=== PATIENT | male | born 1970 | race Caucasian/White ===

== ENCOUNTER 2020-05-14 23:44 | Emergency (ER) | payer OTHER ==
[2020-05-15 00:28] LABS: HEMOGLOBIN 14.6 gm/dl (14.0-17.5); RED BLOOD COUNT 4.99 M/UL (4.20-5.50); WHITE BLOOD COUNT 3.7 K/UL (4.5-11.0)
[2020-05-15 00:52] LABS: BUN/CREATININE RATIO 20 (0-10)
[2020-05-15] MEDS ORDERED: TORADOL 10 MG T10 MG PO (01:37)
[2020-05-15] MEDS ORDERED: ZITHROMAX500 MG PO (01:37)
[2020-05-15] MEDS ORDERED: ASPIRIN 325MG325 MG PO (01:37)
[2020-05-16] MEDS ORDERED: GLUCOPHAGE 500500 MG PO (16:26)
[2020-05-16] MEDS ORDERED: CRESTOR20 MG PO (16:27)
[2020-05-16] MEDS ORDERED: CYMBALTA60 MG PO (16:27)
[2020-05-16] MEDS ORDERED: ACCUPRIL 10 MG10 MG PO (16:28)
[2020-05-16] MEDS ORDERED: VITAMIN D31250 MCG PO (16:50)
== END 2020-05-15 04:13 | disposition home or self-care (01) ==
LOC: ER1 23:44
PROVIDERS: Emergency Medicine
DX: Z53.8 Procedure and treatment not carried out for other reasons (principal)
CPT/HCPCS: 71045; 80053; 82550; 82553; 83605; 83874; 84484; 85025; 87040; 93005; 96374; 99285; J1885; M0239

== ENCOUNTER 2020-05-16 13:57 | Inpatient (IN) | payer OTHER ==
[~2020-05-16] VITALS: Ht 177.8 cm; Wt 133.8 kg
[~2020-05-16 13:57] MED LIST: ASPIRIN 325MG325 MG PO; TORADOL 10 MG T10 MG PO; ZITHROMAX500 MG PO
[2020-05-16 15:32] LABS: HEMOGLOBIN 13.4 gm/dl (14.0-17.5); RED BLOOD COUNT 4.62 M/UL (4.20-5.50); WHITE BLOOD COUNT 4.2 K/UL (4.5-11.0)
[2020-05-16 16:00] LABS: BUN/CREATININE RATIO 19 (0-10)
[2020-05-16] MEDS ORDERED: GLUCOPHAGE 500500 MG PO (16:26)
[2020-05-16] MEDS ORDERED: CYMBALTA60 MG PO (16:27)
[2020-05-16] MEDS ORDERED: CRESTOR20 MG PO (16:27)
[2020-05-16] MEDS ORDERED: ACCUPRIL 10 MG10 MG PO (16:28)
[2020-05-16] MEDS ORDERED: VITAMIN D31250 MCG PO (16:50)
[2020-05-17 05:07] LABS: HEMOGLOBIN 13.3 gm/dl (14.0-17.5); RED BLOOD COUNT 4.59 M/UL (4.20-5.50); WHITE BLOOD COUNT 4.7 K/UL (4.5-11.0)
[2020-05-17 05:16] LABS: BUN/CREATININE RATIO 19 (0-10)
[2020-05-18 05:49] LABS: RED BLOOD COUNT 4.86 M/UL (4.20-5.50)
[2020-05-18 06:38] LABS: BUN/CREATININE RATIO 25 (0-10)
--- NOTE | 2020-05-18 11:37 | NUR ---
PATIENT WITH INCREASE SOB WITH ANY ACTIVITY. PROVIDED EDUCATION R/T PACING HIS ACTIVITY AND HER VERB UNDERSTANDING
[2020-05-19 03:40] LABS: HEMOGLOBIN 13.6 gm/dl (14.0-17.5); RED BLOOD COUNT 4.75 M/UL (4.20-5.50)
[2020-05-19 04:03] LABS: BUN/CREATININE RATIO 38 (0-10)
[2020-05-20 03:46] LABS: HEMOGLOBIN 13.6 gm/dl (14.0-17.5); RED BLOOD COUNT 4.74 M/UL (4.20-5.50); WHITE BLOOD COUNT 6.2 K/UL (4.5-11.0)
[2020-05-20 04:09] LABS: BUN/CREATININE RATIO 30 (0-10)
[2020-05-21 05:02] LABS: HEMOGLOBIN 13.7 gm/dl (14.0-17.5); RED BLOOD COUNT 4.81 M/UL (4.20-5.50); WHITE BLOOD COUNT 7.6 K/UL (4.5-11.0)
[2020-05-21 05:20] LABS: BUN/CREATININE RATIO 30 (0-10)
[2020-05-21] MEDS ORDERED: INCENTIVE SPIROMETER INH (10:09)
[2020-05-21] MEDS ORDERED: OXYGEN (10:09)
[2020-05-21] MEDS ORDERED: FAMOTIDINE20 MG PO (10:09)
[2020-05-21] MEDS ORDERED: PROVENTIL HFA6.7 GM INH (10:09)
[2020-05-21] MEDS ORDERED: DEXAMETHASONE6 MG PO (10:09)
--- NOTE | 2020-05-21 18:28 | NUR ---
PT DEMONSTRATED ABILITY TO PERFORM IS CORRECTLY
== END 2020-05-21 18:04 | disposition home or self-care (01) | DRG 177 ==
LOC: ER1 13:57 → M/S 16:21 → CDU 16:21 → M/S 05-17 01:14
PROVIDERS: Family Medicine; Internal Medicine; Internal Medicine Pulmonary Disease; ADMIT Internal Medicine
PROC: 8E0ZXY6 Isolation (ICD-10-PCS; principal; 2020-05-16)
PROC: XW033E5 Introduction of Remdesivir Anti-infective into Peripheral Vein, Percutaneous Approach, New Technology Group 5 (ICD-10-PCS; 2020-05-16)
PROC: B24BZZZ Ultrasonography of Heart with Aorta (ICD-10-PCS; 2020-05-18)
DX: U07.1 COVID-19 (principal); J12.82 Pneumonia due to coronavirus disease 2019; J96.01 Acute respiratory failure with hypoxia; Z68.41 Body mass index [BMI] 40.0-44.9, adult; I10 Essential (primary) hypertension; G47.33 Obstructive sleep apnea (adult) (pediatric); E11.9 Type 2 diabetes mellitus without complications; E66.01 Morbid (severe) obesity due to excess calories; E55.9 Vitamin D deficiency, unspecified; F32.9 Major depressive disorder, single episode, unspecified; Z79.84 Long term (current) use of oral hypoglycemic drugs; Z79.82 Long term (current) use of aspirin; Z79.899 Other long term (current) drug therapy
CPT/HCPCS: ECHO; 36415; 36600; 71045; 71046; 71275; 80048; 80053; 82550; 82553; 82728; 82803; 82962; 83605; 83615; 83735; 83874; 83880; 84100; 84484; 85025; 85027; 85379; 85384; 85610; 85730; 86140; 87040; 87081; 90471; 93005; 93306; 94664; 94760; 96365; 96366; 96367; 96372; 96374; 96375; 99285; J0456; J0696; J1100; J1650; J1885; J7030; M0239; Q9967; U0002

== ENCOUNTER → 2020-06-17 | Outpatient (CLI) | payer OTHER ==
[~2020-06-17] MED LIST changes: +ACCUPRIL 10 MG10 MG PO; +CRESTOR20 MG PO; +CYMBALTA60 MG PO; +DEXAMETHASONE6 MG PO; +FAMOTIDINE20 MG PO; +GLUCOPHAGE 500500 MG PO; +INCENTIVE SPIROMETER INH; +OXYGEN; +PROVENTIL HFA6.7 GM INH; +VITAMIN D31250 MCG PO
== END ==
LOC: EXRD 11:38
DX: R06.02 Shortness of breath (principal)
CPT/HCPCS: 71046